=== PATIENT | female | born 1970 | race Caucasian/White ===

== ENCOUNTER 2024-01-24 06:26 | Day surgery (SDC) | payer MEDICARE, OTHER, SELFPAY ==
[2024-01-24] VITALS (7 sets, daily range): BP systolic 89–172; BP diastolic 66–151; BMI 26.6
[2024-01-24] MEDS: NORMOSOL-R 1000 IV (07:30)
[2024-01-24] MEDS: SUBLIMAZE 50 MCG IV (09:30)
[2024-01-24] MEDS: VALIUM 5 MG PO (10:08)
[2024-01-24] MEDS: ROXICODONE 5 MG PO (10:08)
[2024-01-24] MEDS: Pyridium 200 MG PO (10:08)
== END 2024-01-24 10:56 | disposition home or self-care (01) ==
LOC: SDS 06:26
PROVIDERS: ATTENDING PHYSICIAN Urology
DX: N30.10 Interstitial cystitis (chronic) without hematuria (principal); N32.89 Other specified disorders of bladder; R31.9 Hematuria, unspecified; M62.89 Other specified disorders of muscle
CPT/HCPCS: 52260; 87086